=== PATIENT | male | born 1970 | race Two or more races ===

== ENCOUNTER 2016-12-03 19:00 | Emergency (ER) | payer BC ==
[2016-12-03 19:20] VITALS: TEMP 98.4; BMI 27.6
--- NOTE | 2016-12-03 20:13 | PDOC ---
History of Present Illness - General Chief Complaint: Blood Pressure Problem Stated Complaint: BLOOD PRESSURE PROBLEM Time Seen by Provider: 12/03/16 20:08 - History of Present Illness Initial Comments: 12/03/16 20:11 CHIEF COMPLAINT: blood pressure problem HISTORY OF PRESENT ILLNESS: 46 yo M with hx of anxiety presents to fast track with concerns of high blood pressure. Patient and family report that he took his blood pressure at home and "the bottom number was like in 120s." He denies any current chest pain, shortness of breath, headache, but does report "feeling a little dizzy earlier." PAST MEDICAL HISTORY: Denies past medical history FAMILY HISTORY: Denies SOCIAL HISTORY: Denies tobacco, alcohol, illicit drug use. SURGICAL HISTORY: Denies ALLERGIES: No known drug allergies REVIEW OF SYSTEMS General/Constitutional: Denies fever or chills. Denies weakness, weight change. HEENT: Denies change in vision. Denies ear pain or discharge. Denies sore throat. Cardiovascular: Chest pain Respiratory: Denies cough, wheezing, or hemoptysis. Gastrointestinal: Denies nausea, vomiting, diarrhea or constipation. Denies rectal bleeding. Genitourinary: Denies dysuria, frequency, or change in urination. Musculoskeletal: Denies joint or muscle swelling or pain. Denies neck or back pain. Skin and breasts: Denies rash or easy bruising. Neurologic: Denies headache, vertigo, loss of consciousness, or loss of sensation. PHYSICAL EXAM General Appearance: Well-appearing, appropriately dressed. No apparent distress , no intoxication. HEENT: EOMI, PERRLA, normal ENT inspection, normal voice, TMs normal, pharynx normal. No conjunctival pallor. No photophobia, scleral icterus. Neck: Supple. Trachea midline. No tenderness, rigidity, carotid bruit, stridor , lymphadenopathy, or thyromegaly. Respiratory/Chest: Lungs CTAB. Cardiovascular: Tachycardic to 112. RRR. S1, S2. . Vascular Pulses: Dorsalis-Pedis (R): 2+, Dorsalis-Pedis (L): 2+ Gastrointestinal/Abdominal: Normal bowel sounds. Abdomen soft, non-distended. No tenderness or rebound tenderness. No organomegaly, pulsatile mass, guarding , hernia, hepatomegaly, splenomegaly. Musculoskeletal/Extremities: Normal inspection. FROM of all extremities, normal capillary refill. Pelvis Stable. No CVA tenderness. No tenderness to extremities, pedal edema, swelling, erythema or deformity. Integumentary: Appropriate color, dry, warm. No cyanosis, erythema, jaundice or rash Neurologic: research investigator II-XII intact. Fully oriented, alert. Appropriate mood/affect. Motor strength 5/5. No appreciable EOM palsy, facial droop or sensory deficit. 12/03/16 20:13 Past History - Past Medical History Allergies/Adverse Reactions: Allergies Allergy/AdvReac Type Severity Reaction Status Date / Time Penicillins Allergy Verified 12/03/16 19:18 Home Medications: Ambulatory Orders Paroxetine HCl [Paxil -] 20 mg PO DAILY 12/03/16 Hypercholesterolemia: Yes (border line) - Surgical History Appendectomy: Yes - Suicide/Smoking/Psychosocial Hx Smoking History: Never smoked Have you smoked in the past 12 months: No Information on smoking cessation initiated: No Hx Alcohol Use: No Drug/Substance Use Hx: No Substance Use Type: Alcohol *Physical Exam - Vital Signs Last Vital Signs Temp Pulse Resp BP Pulse Ox 98.4 F 112 H 18 131/89 100 12/03/16 19:12 12/03/16 19:12 12/03/16 19:12 12/03/16 19:12 12/03/16 19:12 Medical Decision Making - Medical Decision Making 12/03/16 20:16 46 yo M with hx of anxiety presents to fast track with concerns of high blood pressure. Blood pressure wnl in ED. Patient continues to be tachy to 113. Will do EKG. EKG with NSR. Advised patient to f/u with PCP and neon sign servicer. Patient states he will see his PCP tomorrow. *DC/Admit/Observation/Transfer Diagnosis at time of Disposition: Anxiety - Discharge Dispostion Disposition: HOME Condition at time of disposition: Stable Admit: No - Referrals Referrals: Ollie Cortes MD [Staff Physician] - - Patient Instructions Printed Discharge Instructions: How to Monitor Your Blood Pressure at Home Additional Instructions: Please follow up with your primary care doctor tomorrow as planned. As discussed, you need to follow up with your neon sign servicer as well for continued evaluation of your blood pressure. If you develop ANY chest pain, shortness of breath, excessive sweating, difficulty breathing, palpitations, or any new or worsening symptoms, please return to the ER.
[2016-12-03 20:14] VITALS: BP 115/78; PULSE 113
--- NOTE | 2016-12-04 14:11 | EKG ---
Test Reason : Blood Pressure : / mmHG Vent. Rate : 096 BPM Atrial Rate : 096 BPM P-R Int : 184 ms QRS Dur : 096 ms QT Int : 332 ms P-R-T Axes : 047 019 019 degrees QTc Int : 419 ms NORMAL SINUS RHYTHM NORMAL ECG WHEN COMPARED WITH ECG OF 06-NOV-2014 17:28, T WAVE AMPLITUDE HAS INCREASED IN ANTERIOR LEADS Confirmed by JD CORTES MD ([id number]) on 12/04/2016 2:10:40 PM Referred By: RAHEL Confirmed By:JD CORTES MD
== END 2016-12-03 20:37 | disposition home or self-care (01) ==
LOC: JERFT 19:00
DX: F41.9 Anxiety disorder, unspecified (principal); I10 Essential (primary) hypertension; E78.00 Pure hypercholesterolemia, unspecified
CPT/HCPCS: 93005; 93010; 99281-25

== ENCOUNTER 2019-11-10 20:21 | Inpatient (IN) | payer BC ==
[2019-11-10 20:31] VITALS: BMI 27.9
[2019-11-10] MEDS ORDERED: ASPIRIN 81 MG CHEWABLE TABLETS PO ONE (21:00)
[2019-11-10] MEDS ORDERED: ASPIRIN 81 MG CHEWABLE TABLETS ONE (21:23)
--- NOTE | 2019-11-10 21:33 | PDOC ---
History of Present Illness - General Chief Complaint: Chest Pain Stated Complaint: HYPERTENSION Time Seen by Provider: 11/10/19 20:43 - History of Present Illness Initial Comments: please disregard home medications list immediately below. could not remove Home Medications Medication Instructions Recorded Paroxetine HCl [Paxil -] 20 mg PO DAILY 12/03/16 HPI 49 yo M with PMH of HTN, HLD, GERD, and anxiety presenting with 3-4 weeks of L sided chest pain. Chest pain is sharp, intermittent (with no precipitating/associated activities) and of mild-moderate severity. Pt reports it has been associated with intermittent palpitations and dyspnea on exertion and sometimes at rest over the last few days. Pt also complains of tingling ("pins and needles") in his L arm over the same duration but reports that it is not associated with his chest pain. Pt was recently seen by PCP with similar but milder symptoms and was prescribed a short course of xanax. Denies history of clots, calf pain, abdominal pain, nausea, vomiting, diarrhea, constipation, coughing, no changes in vision, headache, urinary changes, other changes in strength/sensation, recent travel, sick contacts, sedentary lifestyle, history of Cancer PMHX: as in HPI PSHX: as in HPI FH: mother with multiple MIs in the past; father with arrhythmia Meds: atenolol, lipitor, xanax (short term course recently prescribed by PCP, favio tarangodine Allergies: as per chart Tob: denies Etoh: family reports he drinks too much; drinks alcohol on weekends only - will drink 1/2 a bottle of whiskey; sometimes will drink to the point of blacking out. Denies experiencing alcohol withdrawal symptoms in the past. Rec drugs: denies PCP: Dr. Valery BRADSHAW GENERAL/CONSTITUTIONAL: No fever or chills. No weakness. HEAD, EYES, EARS, NOSE AND THROAT: No change in vision. No ear pain or discharge. No sore throat. CARDIOVASCULAR: + chest pain, + palpitations + shortness of breath; minimal CP and SOB at this moment RESPIRATORY: No cough, wheezing, or hemoptysis GASTROINTESTINAL: No nausea, vomiting, diarrhea or constipation. GENITOURINARY: No dysuria, frequency, or change in urination. MUSCULOSKELETAL: No joint or muscle swelling or pain. No neck or back pain. SKIN: No rash NEUROLOGIC: No headache, vertigo, loss of consciousness, or change in st rength/sensation. + pins and needles in LUE ENDOCRINE: No increased thirst. No abnormal weight change HEMATOLOGIC/LYMPHATIC: No anemia, easy bleeding, or history of blood clots. ALLERGIC/IMMUNOLOGIC: No hives or skin allergy. PE GENERAL: Awake, alert, and fully oriented, in no acute distress; mildly nervous/anxious appearing; oxygenating well on RA HEAD: No signs of trauma, normocephalic, atraumatic EYES: PERRLA, EOMI, sclera anicteric, conjunctiva clear ENT: Auricles normal inspection, hearing grossly normal, nares patent, oropharynx clear without exudates. Moist mucosa NECK: Normal ROM, supple, no lymphadenopathy, JVD, or masses LUNGS: No distress, speaks full sentences, clear to auscultation bilaterally HEART: Tachycardia and regular rhythm, normal S1 and S2, no murmurs, rubs or gal lops, peripheral pulses normal and equal bilaterally. Mild tenderness to palpation of L upper chest but pt reports pain is not completely reproduced. ABDOMEN: Soft, nontender, normoactive bowel sounds. No guarding, no rebound. No masses EXTREMITIES : Normal inspection, Normal range of motion, no edema. No clubbing or cyanosis. NEUROLOGICAL: Cranial nerves II through XII grossly intact. Normal speech, normal gait, no focal sensorimotor deficits SKIN: Warm, Dry, normal turgor, no rashes or lesions noted 11/10/19 22:02 Past History - Medical History Allergies/Adverse Reactions: Allergies Allergy/AdvReac Type Severity Reaction Status Date / Time Penicillins Allergy Verified 06/20/19 10:26 Home Medications: Ambulatory Orders Paroxetine HCl [Paxil -] 20 mg PO DAILY 12/03/16 COPD: No HTN: Yes Hypercholesterolemia: Yes (border line) - Surgical History Appendectomy: Yes - Psycho-Social/Smoking History Smoking History: Never smoked Have you smoked in the past 12 months: No - Substance Abuse Hx (Audit-C & DAST Scrn) How often the patient has a drink containing alcohol: Monthly or less Score: In Men: 4 or > Positive; In Women: 3 or > Positive: 1 Screen Result (Pos requires Nsg. Audit-10AR): Negative *Physical Exam - Vital Signs Last Vital Signs Temp Pulse Resp BP Pulse Ox 97.9 F 80 16 126/88 98 09/10/20 23:26 11/10/19 23:26 11/10/19 23:26 11/10/19 23:26 11/10/19 23:26 ED Treatment Course - LABORATORY CBC & Chemistry Diagram: 11/10/19 21:45 11/10/19 21:45 - ADDITIONAL ORDERS Additional order review: Laboratory Results 11/10/19 11/10/19 21:45 21:45 D-Dimer 288 Sodium 139 Potassium 3.8 Chloride 104 Carbon Dioxide 29 Anion Gap 6 L BUN 16.1 Creatinine 0.9 Est GFR (CKD-EPI)AfAm 115.83 Est GFR (CKD-EPI)NonAf 99.94 Random Glucose 111 H Calcium 9.4 Total Bilirubin 0.4 AST 28 ALT 53 Alkaline Phosphatase 53 Troponin I < 0.02 Total Protein 7.8 Albumin 4.2 TSH 0.82 11/10/19 21:45 RBC 6.17 H MCV 72.7 L MCHC 32.1 RDW 14.1 MPV 11.8 H Neutrophils % 73.4 Lymphocytes % 17.9 Monocytes % 8.0 Eosinophils % 0.4 Basophils % 0.3 - Medications Given in the ED: ED Medications Discontinued Medications Generic Name Dose Route Start Last Admin Trade Name Freq PRN Reason Stop Dose Admin Aspirin 324 mg 11/10/19 21:00 11/10/19 21:44 Asa - PO 11/10/19 21:01 324 mg ONCE ONE Administration Medical Decision Making - Medical Decision Making MDM 49 yo M with PMH of HTN, HLD, and anxiety presenting with intermittent sharp L sided chest pain with associated SOB and palpitations. DDX including but not limited to: anxiety, costochondritis, ACS, PE, hyperthyroidism W/U: -CBC, CMP, D-dimer, TSH, trop -EKG with NSR (100 bpm), NE interval 204; QRS 90; QT/QTc 324/417, possible LVH -CXR with no acute cardiopulmonary findings TX: - ASA Scores: HEART score 4 11/10/19 22:21 initial trop neg; D-dimer 288; TSH 0.82 11/10/19 22:41 will plan to admit to tele obs 11/11/19 00:12 Pt signed out to admitting team. Being admitted for observation. 11/11/19 02:30
[2019-11-10 22:00] LABS: BASO % 0.3 % (0-2.0); EOS % 0.4 % (0-4.5); HEMATOCRIT 44.9 % (35.4-49); HEMOGLOBIN 14.4 GM/dL (11.7-16.9); LYMPH % 17.9 % (8-40); MCH 23.4 pg (25.7-33.7); MCHC 32.1 g/dl (32.0-35.9); MEAN CELL VOLUME 72.7 fl (80-96); MEAN PLT VOLUME 11.8 fl (7.5-11.1); NEUT % 73.4 % (42.8-82.8); PLATELET COUNT 131 K/MM3 (134-434); RBC 6.17 M/mm3 (4.00-5.60); RDW 14.1 % (11.9-15.9); WHITE BLOOD COUNT 8.9 K/mm3 (4.0-10.0)
--- NOTE | 2019-11-10 22:03 | PDOC ---
Attending Attestation - Resident Resident Name: ElliJavier - ED Attending Attestation I have performed the following: I have examined & evaluated the patient, The case was reviewed & discussed with the resident, I agree w/resident's findings & plan, Exceptions are as noted - HPI HPI: 11/10/19 22:03 See resident HPI - Physicial Exam PE: 11/10/19 22:03 Agree with documented exam - Medical Decision Making 11/10/19 22:04 Left sided chest pain, episodic, at rest, a/w sob, palpitations consider acs, pe, hyperthyroid, msk px HEART score at least 4 prior to labs, hx slightly suspicious, lvh? on ekg, htn, hld, +fam hx, f/u labs including trop, d-dimer ekg, cxr ASA dispo per clinical course 11/10/19 23:55 Discharge - Discharge Information Problems reviewed: Yes Clinical Impression/Diagnosis: Chest pain Condition: Stable Disposition: AGAINST MEDICAL ADVICE - Follow up/Referral - Patient Discharge Instructions - Post Discharge Activity
[2019-11-10 22:25] LABS: ALBUMIN 4.2 g/dl (3.4-5.0); ALK PHOS 53 U/L (45-117); ANION GAP 6 MMOL/L (8-16); BILIRUBIN,TOTAL 0.4 mg/dL (0.2-1); BLOOD UREA NITROGEN 16.1 mg/dL (7-18); CALCIUM 9.4 mg/dL (8.5-10.1); CHLORIDE 104 mmol/L (98-107); CO2 29 mmol/L (21-32); CREATININE 0.9 mg/dL (0.55-1.3); GLUCOSE,RANDOM 111 mg/dL (74-106); POTASSIUM 3.8 mmol/L (3.5-5.1); SGOT/AST 28 U/L (15-37); SGPT/ALT 53 U/L (13-61); SODIUM 139 mmol/L (136-145); TOT PROT 7.8 g/dl (6.4-8.2)
--- NOTE | 2019-11-11 01:47 | PN ---
Teaching Attending Note Name of Resident: Melodie Mccain ATTENDING PHYSICIAN STATEMENT I saw and evaluated the patient. I reviewed the resident's note and discussed the case with the resident. I agree with the resident's findings and plan as documented. SUBJECTIVE: Patient is a 49 year old man with a PMH of Penicillin allergy, HTN, HLD, GERD, Abnormal HbA1c, Alcohol abuse and Anxiety who presents with 3-4 weeks of left sided chest pain. Chest pain is sharp, intermittent (with no precipitating/associated activities) and of mild-moderate severity. Patient reports associated intermittent palpitations and dyspnea on exertion and sometimes at rest over the last few days. Also has tingling ("pins and needles") in his left arm over the same duration but reports that it is not associated with his chest pain. Was recently seen by PCP with similar but milder symptoms and was prescribed a short course of Xanax. Denies history of blood clots, calf pain, abdominal pain, nausea, vomiting, diarrhea, constipation, coughing, changes in vision, headache or dysuria. Denies tobacco or illicit drug use. No sick contacts or recent travels. Patient has a family history of DM, HTN in sister, three MIs in mother and father with arrhythmia and pacemaker. Alert Vital Signs Period Temp Pulse Resp BP Sys/Sanchez Pulse Ox Last 24 Hr 97.9 F-98.1 F 80-107 16-20 126-133/88-94 98-100 HEENT: No Jaundice, eye redness or discharge, PERRLA, EOMI. Normocephalic, atraumatic. External ears are normal and hearing is grossly intact. No nasal discharge. Neck: Supple, nontender. No palpable adenopathy or thyromegaly. No JVD Chest: Good effort. Clear to auscultation and percussion. Heart: Regular. No S3, rub or murmur Abdomen: Not distended, soft, nontender and no HSM. No rebound or guarding. Normal bowel sounds. Ext: Peripheral pulses intact. No leg edema. Skin: Warm and dry. No petechiae, rash or ecchymosis. Neuro: Alert. Oriented x3. CN 2-12 grossly intact. Sensation grossly intact in all four extremities and DTR are symmetric. Psych: Appropriate mood and affect. Good insight. Home Medications Medication Instructions Recorded Paroxetine HCl [Paxil -] 20 mg PO DAILY 12/03/16 Abnormal Lab Results 11/10/19 11/10/19 21:45 21:45 RBC 6.17 H MCV 72.7 L MCH 23.4 L Plt Count 131 L MPV 11.8 H Anion Gap 6 L Random Glucose 111 H ASSESSMENT AND PLAN: 1. Chest pain - Pain is atypical but he mas multiple risk factors for CAD. EKG shows NSR at 100/minute, LVH and QTc [address]-T wave changes. Initial troponin is negative. CXR shows cardiomegaly with no evidence of acute lung disease. ER staff prescribed Aspirin 324 mg for the patient. Will admit to telemetry, trend troponin, repeat EKG, get ECHO, HbA1c, fasting lipids, urinalysis, urine toxicology and consult Cardiology. Viral testing for COVID-19 ordered and patient placed on airborne, droplet and contact isolation. Will continue comprehensive care for all of patients comorbid conditions. 2. Alcohol abuse Will implement [facility] alcohol withdrawal protocol and do neurochecks. Implement seizure, fall and aspiration precautions. Treat with IV Banana bag, thiamine and folic acid. Monitor and replete electrolytes (Ca,Mg,K,P). Counseled patient about abstaining from alcohol. Will consult salon customer experience specialist and refer to alcohol detox upon discharge. 3. Hypertension Will restart suitable outpatient antihypertensive drugs when clinically appropriate. Subsequently, will revise regimen to ensure [id number] excellent BP control. Patient counseled on the injurious effects of uncontrolled hypertension. Nonpharmacologic measures to control hypertension like weight loss, salt restriction and exercise stressed. Importance of adherence to treatment regimen and attainment of normotension emphasized. 4. DVT prophylaxis - Lovenox 40 mg SQ q 24 hours. 5. Advance directives - Full code
--- NOTE | 2019-11-11 03:31 | HP ---
CHIEF COMPLAINT: My chest hurts and that worries me PCP: Dr. Rasmussen HISTORY OF PRESENT ILLNESS: 49yo M with PMHx of HTN, HLD, GERD, anxiety who presents with 2-4 weeks of L- sided CP. Patient explained that the pain is intermittent, "shooting", and sometimes radiating down his L arm and to his back. The pain occurs randomly, sometimes when he walks up stairs, sometimes when he is eating, and sometimes when he is relaxed laying in bed. This has been going on for some time but today it got worse. When the CP episodes occur, patient gets worried that he might be having a heart attack because his mother had 3 heart attacks. His doctor recently gave him some Alprazolam, which did not help with the CP. Patient endorsed headaches without photophobia, dizziness, palpitations, SOB, and with the CP episodes he also feels dysuria, polyuria. Denied vertigo, NVD. ER course was notable for: (1) anxious appearing patient, significant Family history (2) EKG showing NSR with minimal voltage criteria for LVH (3) trop <0.02, TSH 0.82, D-dimer 288 Recent Travel: none PAST MEDICAL HISTORY: as per HPI PAST SURGICAL HISTORY: appendectomy as a child Family History: mother: AR x3, CAD father: arrhythmia s/p pacemaker, CAD sister: HTN 2 healthy children Social History: Smoking: denied Alcohol: "too much" on weekends, half bottle of whiskey Drugs: denied Work: maintenance Home: lives with girlfriend Allergies Penicillins Allergy (Verified 06/20/19 10:26) HOME MEDICATIONS: atenolol lipitor xanax (not actively taking) famotidine *unsure of doses *[facility] pharmacy REVIEW OF SYSTEMS as per HPI PHYSICAL EXAMINATION Vital Signs - 24 hr 11/10/19 11/10/19 11/11/19 20:30 23:26 02:15 Temperature 98.1 F 97.9 F Pulse Rate 107 H Pulse Rate [ 80 57 L Right Radial] Respiratory 20 16 15 Rate Blood Pressure 133/94 Blood Pressure 126/88 139/89 [Left Arm] O2 Sat by Pulse 100 98 100 Oximetry (%) GENERAL: M, mildly overweight body habitus, AAOx4 showing no signs of acute distress but mildly anxious HEAD: Normal with no signs of trauma, good dentition EYES: PERRL, extraocular movements intact bilaterally, sclera anicteric EARS, NOSE, THROAT: Moist mucous membranes NECK: No lymphadenopathy noted LUNGS: CTAB. No wheezes appreciated HEART: RRR, normal S1 and S2 without murmur ABDOMEN: Soft, nontender to deep palpation, mildly protuberant, normoactive bowel sounds EXTREMITIES: 1+ radial and dorsalis pedis pulses, warm to touch bilaterally, nontender to palpation, no peripheral edema appreciated, no active lesions or ulcers noted on feet bilaterally including interdigital web spaces NEUROLOGICAL: Cranial nerves II-XII grossly intact. Normal speech with symmetricalfacial movements. Sensation intact bilaterally PSYCHIATRIC: Cooperative, interactive, responds appropriately. Good eye contact. Scared/nervous mood, affect congruent with stated mood SKIN: no rashes or lesions noted Laboratory Results - last 24 hr 11/10/19 11/10/19 11/10/19 21:45 21:45 21:45 WBC 8.9 RBC 6.17 H Hgb 14.4 Hct 44.9 MCV 72.7 L MCH 23.4 L MCHC 32.1 RDW 14.1 Plt Count 131 L MPV 11.8 H Absolute Neuts (auto) 6.5 Neutrophils % 73.4 Lymphocytes % 17.9 Monocytes % 8.0 Eosinophils % 0.4 Basophils % 0.3 Nucleated RBC % 0 D-Dimer 288 Sodium 139 Potassium 3.8 Chloride 104 Carbon Dioxide 29 Anion Gap 6 L BUN 16.1 Creatinine 0.9 Est GFR (CKD-EPI)AfAm 115.83 Est GFR (CKD-EPI)NonAf 99.94 Random Glucose 111 H Calcium 9.4 Total Bilirubin 0.4 AST 28 ALT 53 Alkaline Phosphatase 53 Troponin I < 0.02 Total Protein 7.8 Albumin 4.2 TSH 0.82 ASSESSMENT/PLAN: 49yo M with PMHx of HTN, HLD, GERD, anxiety who presents with 2-4 weeks of intermittent, "shooting" L-sided CP. ED workup was remarkable for an anxious appearing patient with significant Family history, EKG showing NSR with minimal voltage criteria for LVH, trop <0.02, TSH 0.82, D-dimer 288. Patient was admitted for further observation and ACS r/o. #intermittent, "shooting" L-sided CP - warrants further w/o given HPI and family history, could also be due to severe anxiety - cardiology consulted - repeat EKG and trop - restarted home statin - need med rec with [facility] pharmacy for dosages - started ASA 81 - urine tox ordered - UA, A1C, librium protocol #HTN - holding home atenolol - restart when clinically indicated #GERD - restarted home famotidine #FEN - no standing fluids - replete lytes PRN - sodium controlled diet #PPX - DVT: lovenox - GI: famotidine #Dispo: Telemetry Family Medical History Family History: As Documented Visit type - Emergency Visit Emergency Visit: Yes ED Registration Date: 11/11/19 Care time: The patient presented to the Emergency Department on the above date and was hospitalized for further evaluation of their emergent condition. - New Patient This patient is new to me today: Yes Date on this admission: 11/11/19 - Critical Care Critical Care patient: No ATTENDING PHYSICIAN STATEMENT I saw and evaluated the patient. I reviewed the resident's note and discussed the case with the resident. I agree with the resident's findings and plan as documented. SUBJECTIVE: OBJECTIVE: ASSESSMENT AND PLAN:
[2019-11-11 04:50] LABS: BASO % 0.5 % (0-2.0); EOS % 1.2 % (0-4.5); HEMATOCRIT 44.1 % (35.4-49); HEMOGLOBIN 14.2 GM/dL (11.7-16.9); LYMPH % 31.5 % (8-40); MCH 23.4 pg (25.7-33.7); MCHC 32.2 g/dl (32.0-35.9); MEAN CELL VOLUME 72.8 fl (80-96); MEAN PLT VOLUME 11.7 fl (7.5-11.1); NEUT % 57.8 % (42.8-82.8); PLATELET COUNT 129 K/MM3 (134-434); RBC 6.05 M/mm3 (4.00-5.60); RDW 14.5 % (11.9-15.9)
[2019-11-11 05:02] LABS: ALBUMIN 3.9 g/dl (3.4-5.0); ALK PHOS 49 U/L (45-117); ANION GAP 7 MMOL/L (8-16); BILIRUBIN,TOTAL 0.6 mg/dL (0.2-1); BLOOD UREA NITROGEN 15.8 mg/dL (7-18); CHLORIDE 104 mmol/L (98-107); CO2 29 mmol/L (21-32); CREATININE 0.7 mg/dL (0.55-1.3); GLUCOSE,RANDOM 92 mg/dL (74-106); MAGNESIUM 2.1 mg/dL (1.8-2.4); PHOSPHOROUS 4.3 mg/dL (2.5-4.9); POTASSIUM 3.7 mmol/L (3.5-5.1); SGOT/AST 22 U/L (15-37); SGPT/ALT 47 U/L (13-61); SODIUM 140 mmol/L (136-145); TOT PROT 7.2 g/dl (6.4-8.2)
--- NOTE | 2019-11-11 09:17 | EKG ---
Test Reason : Blood Pressure : / mmHG Vent. Rate : 100 BPM Atrial Rate : 100 BPM P-R Int : 204 ms QRS Dur : 090 ms QT Int : 324 ms P-R-T Axes : 052 008 019 degrees QTc Int : 417 ms NORMAL SINUS RHYTHM MINIMAL VOLTAGE CRITERIA FOR LVH, MAY BE NORMAL VARIANT WHEN COMPARED WITH ECG OF 03-DEC-2016 20:24, NO SIGNIFICANT CHANGE WAS FOUND Confirmed by CESAR STOKES MD ([id number]) on 11/11/2019 9:17:00 AM Referred By: Confirmed By:CESAR STOKES MD
[2019-11-11] MEDS ORDERED: ASPIRIN COATED 81 MG TABLET.EC ONE (09:53)
[2019-11-11] MEDS ORDERED: ENOXAPARIN NA (PORCINE) 40 MG/0.4 ML DISP.SYRIN SQ ONE (09:53)
[2019-11-11] MEDS ORDERED: FAMOTIDINE 10 MG TABLET ONE (09:53)
[2019-11-11] MEDS ORDERED: PARoxetine HCL 10 MG TABLET ONE (09:53)
[2019-11-11] MEDS ORDERED: PARoxetine HCL 20 MG TABLET PO SCH (10:00)
[2019-11-11] MEDS ORDERED: ENOXAPARIN NA (PORCINE) 40 MG/0.4 ML DISP.SYRIN SQ SCH (10:00)
[2019-11-11] MEDS ORDERED: FAMOTIDINE 10 MG TABLET PO SCH (10:00)
[2019-11-11] MEDS ORDERED: ASPIRIN 81 MG CHEWABLE TABLETS PO SCH (10:00)
[2019-11-11 11:15] VITALS: BP 135/94; PULSE 57; TEMP 98.2
--- NOTE | 2019-11-11 15:50 | DS ---
Physical Exam: SUBJECTIVE: Patient seen and examined OBJECTIVE: Vital Signs Period Temp Pulse Resp BP Sys/Sanchez Pulse Ox Last 24 Hr 97.9 F-98.2 F 54-107 15-20 119-139/86-94 98-100 PHYSICAL EXAM GENERAL: The patient is awake, alert, and fully oriented, in no acute distress. HEAD: Normal with no signs of trauma. EYES: PERRL, extraocular movements intact, sclera anicteric, conjunctiva clear. ENT: Ears normal, nares patent, oropharynx clear without exudates, moist mucous membranes. NECK: Trachea midline, full range of motion, supple. LUNGS: Breath sounds equal, clear to auscultation bilaterally, no wheezes, no crackles, no accessory muscle use. HEART: Regular rate and rhythm, S1, S2 without murmur, rub or gallop. ABDOMEN: Soft, nontender, nondistended, normoactive bowel sounds, no guarding, no rebound, no hepatosplenomegaly, no masses. EXTREMITIES: 2+ pulses, warm, well-perfused, no edema. NEUROLOGICAL: Cranial nerves II through XII grossly intact. Normal speech, gait not observed. PSYCH: Normal mood, normal affect. SKIN: Warm, dry, normal turgor, no rashes or lesions noted. LABS Laboratory Results - last 24 hr 11/10/19 11/10/19 11/10/19 21:45 21:45 21:45 WBC 8.9 RBC 6.17 H Hgb 14.4 Hct 44.9 MCV 72.7 L MCH 23.4 L MCHC 32.1 RDW 14.1 Plt Count 131 L MPV 11.8 H Absolute Neuts (auto) 6.5 Neutrophils % 73.4 Lymphocytes % 17.9 Monocytes % 8.0 Eosinophils % 0.4 Basophils % 0.3 Nucleated RBC % 0 D-Dimer 288 Sodium 139 Potassium 3.8 Chloride 104 Carbon Dioxide 29 Anion Gap 6 L BUN 16.1 Creatinine 0.9 Est GFR (CKD-EPI)AfAm 115.83 Est GFR (CKD-EPI)NonAf 99.94 Random Glucose 111 H Hemoglobin A1c % Calcium 9.4 Phosphorus Magnesium Total Bilirubin 0.4 AST 28 ALT 53 Alkaline Phosphatase 53 Troponin I < 0.02 Total Protein 7.8 Albumin 4.2 TSH 0.82 11/11/19 11/11/19 11/11/19 04:20 04:20 04:20 WBC 8.0 RBC 6.05 H Hgb 14.2 Hct 44.1 MCV 72.8 L MCH 23.4 L MCHC 32.2 RDW 14.5 Plt Count 129 L MPV 11.7 H Absolute Neuts (auto) 4.6 Neutrophils % 57.8 D Lymphocytes % 31.5 D Monocytes % 9.0 Eosinophils % 1.2 D Basophils % 0.5 Nucleated RBC % 0 D-Dimer Sodium 140 Potassium 3.7 Chloride 104 Carbon Dioxide 29 Anion Gap 7 L BUN 15.8 Creatinine 0.7 Est GFR (CKD-EPI)AfAm 128.43 Est GFR (CKD-EPI)NonAf 110.81 Random Glucose 92 Hemoglobin A1c % 5.8 Calcium 9.0 Phosphorus 4.3 Magnesium 2.1 Total Bilirubin 0.6 AST 22 ALT 47 Alkaline Phosphatase 49 Troponin I < 0.02 Total Protein 7.2 Albumin 3.9 TSH HOSPITAL COURSE: Date of Admission:11/11/19 Date of Discharge: 11/11/19 49yo M with PMHx of HTN, HLD, GERD, anxiety who presents with 2-4 weeks of L- sided CP. Patient explained that the pain is intermittent, "shooting", and sometimes radiating down his L arm and to his back. The pain occurs randomly, sometimes when he walks up stairs, sometimes when he is eating, and sometimes when he is relaxed laying in bed. This has been going on for some time but today it got worse. When the CP episodes occur, patient gets worried that he might be having a heart attack because his mother had 3 heart attacks. His doctor recently gave him some Alprazolam, which did not help with the CP. Patient endorsed headaches without photophobia, dizziness, palpitations, SOB, and with the CP episodes he also feels dysuria, polyuria. Denied vertigo, NVD. ER course was notable for: (1) anxious appearing patient, significant Family history (2) EKG showing NSR with minimal voltage criteria for LVH (3) trop <0.02, TSH 0.82, D-dimer 288 Subsequent hospital course Troponins neg x 2 Signed out AMA. Minutes to complete discharge: 35 Discharge Summary Problems reviewed: Yes Reason For Visit: DYSPNEA,CHEST PAIN Current Active Problems Chest pain (Acute) Condition: Stable - Instructions Disposition: AGAINST MEDICAL ADVICE - Home Medications Comprehensive Discharge Medication List: Ambulatory Orders Paroxetine HCl [Paxil -] 20 mg PO DAILY 12/03/16 This patient is new to me today: Yes Date on this admission: 11/12/19 Emergency Visit: Yes ED Registration Date: 11/11/19 Care time: The patient presented to the Emergency Department on the above date and was hospitalized for further evaluation of their emergent condition. Critical Care patient: No - Discharge Referral Referred to [id number] No
[2019-11-11] MEDS ORDERED: ATORVASTATIN CA 20 MG TABLET (FP) PO SCH (22:00)
== END 2019-11-11 13:10 | disposition left against medical advice (07) | DRG 313 ==
LOC: JER 20:21 → JERBED 11-11 00:14 → OBSVTOIN 11-11 02:52
PROVIDERS: ADMIT Internal Medicine; ATTEND Internal Medicine
DX: R07.89 Other chest pain (principal); I10 Essential (primary) hypertension; E78.5 Hyperlipidemia, unspecified; K21.9 Gastro-esophageal reflux disease without esophagitis; F41.9 Anxiety disorder, unspecified; F10.10 Alcohol abuse, uncomplicated
CPT/HCPCS: 36415; 71045-TC-FY; 80053; 83036; 83735; 84100; 84443; 84484; 85025; 85379; 93005; 93010; 99285-25; G0378; U0003

== ENCOUNTER 2021-11-05 18:33 | Emergency (ER) | payer BC ==
[2021-11-05 19:00] VITALS: BP 124/79; PULSE 58; RESP 18; TEMP 98.3; BMI 30.7
[2021-11-05] MEDS ORDERED: KETOROLAC TROMETHAMINE 30 MG/1 ML VIAL IM ONE (19:31)
[2021-11-05] MEDS ORDERED: diazePAM 5 MG TABLET PO ONE (19:31)
[2021-11-05] MEDS ORDERED: KETOROLAC TROMETHAMINE 30 MG/1 ML VIAL ONE (19:34)
[2021-11-05] MEDS ORDERED: diazePAM 5 MG TABLET ONE (19:34)
== END 2021-11-05 20:05 | disposition home or self-care (01) ==
LOC: JERFT 18:33
PROC: 3E023GC Introduction of Other Therapeutic Substance into Muscle, Percutaneous Approach (ICD-10-PCS; principal; 2021-11-05)
DX: G44.209 Tension-type headache, unspecified, not intractable (principal)
CPT/HCPCS: 99284-25